=== PATIENT | male | born 1970 | race Caucasian/White ===

== ENCOUNTER 2020-02-08 16:54 | Emergency (ER) | payer BC ==
[2020-02-08 17:07] VITALS: BP 138/72
--- NOTE | 2020-02-08 17:41 | ER Document Report ---
ED General - General Stated Complaint: SURGICAL COMPLICATION Time Seen by Provider: 02/08/20 17:28 - HPI Patient complains to provider of: bleeding Notes: 49 y/o presenting to ED for evaluation of bleeding from an area of varicose vein that he had surgically treated in December he did not want to remove the dressing at home because he has a h/o significant bleeding from varicose veins and has required oversewing to control the bleeding he denies fever or chills he actually tells me that his leg looks good for him from a swelling standpoint he denies injury to the area he is confident he can have follow up with his vein specialist within 48 hours Past Medical History - Social History Smoking Status: Unknown if Ever Smoked Family History: Other - varicose veins Review of Systems - Review of Systems Constitutional: No symptoms reported EENT: No symptoms reported Cardiovascular: No symptoms reported Respiratory: No symptoms reported Gastrointestinal: No symptoms reported Genitourinary: No symptoms reported Male Genitourinary: No symptoms reported Musculoskeletal: No symptoms reported Skin: Other - bleeding from area of LLE Hematologic/Lymphatic: No symptoms reported Neurological/Psychological: No symptoms reported Physical Exam - Vital signs Vitals: Temp Pulse Resp BP Pulse Ox 98.6 F 64 20 138/72 H 96 02/08/20 17:05 02/08/20 17:05 02/08/20 17:05 02/08/20 17:05 02/08/20 17:05 Interpretation: Normal - General General appearance: Appears well, Alert - HEENT Head: Normocephalic, Atraumatic Eyes: Normal Pupils: PERRL - Respiratory Respiratory status: No respiratory distress Chest status: Nontender Breath sounds: Normal Chest palpation: Normal - Cardiovascular Rhythm: Regular Heart sounds: Normal auscultation Murmur: No - Abdominal Inspection: Normal Distension: No distension Bowel sounds: Normal Tenderness: Nontender Organomegaly: No organomegaly - Back Back: Normal, Nontender - Extremities General upper extremity: Normal inspection, Nontender, Normal color, Normal ROM, Normal temperature General lower extremity: Normal inspection, Nontender, Normal color, Normal ROM, Normal temperature, Normal weight bearing. No: Cindy's sign - Neurological Neuro grossly intact: Yes Cognition: Normal Orientation: AAOx4 Lindsey Coma Scale Eye Opening: Spontaneous Colwell Coma Scale Verbal: Oriented Lindsey Coma Scale Motor: Obeys Commands Colwell Coma Scale Total: 15 Speech: Normal Motor strength normal: LUE, RUE, LLE, RLE Sensory: Normal - Psychological Associated symptoms: Normal affect, Normal mood - Skin Skin Temperature: Warm Skin Moisture: Dry Skin Color: Normal Notes: patient has darkening of skin to lower extremities with LLE having a small area of pinpoint oozing of dark blood. no rapid bleeding or arterial type bleeding. Course - Re-evaluation Re-evalutation: 02/08/20 17:39 very small venous ooze at a site of previously treated varicose vein will place dressing with nonadherent dressing and compression and refer to vein specialist as an outpatient no signs of infection or vascular compromise on exam - Vital Signs Vital signs: Temp Pulse Resp BP Pulse Ox 98.6 F 64 20 138/72 H 96 02/08/20 17:05 02/08/20 17:05 02/08/20 17:05 02/08/20 17:05 02/08/20 17:05 Discharge - Discharge Clinical Impression: Bleeding from varicose vein Condition: Stable Disposition: HOME, SELF-CARE Instructions: Varicose Veins ([facility]) Additional Instructions: Please follow up with your primary care provider and/or vein specialist as an outpatient early this week Keep area clean and dry and use non-adherent dressing with compression type dressing in place to control bleeding Return to the ED with worsening symptoms or concerns
== END 2020-02-08 17:45 | disposition home or self-care (01) ==
LOC: ER 16:54
DX: I83.892 Varicose veins of left lower extremity with other complications (principal)
CPT/HCPCS: 99283